=== PATIENT | female | born 1995 | race Two or more races ===

== ENCOUNTER → 2024-08-18 | Outpatient (CLI) | payer MEDICAID, SELFPAY ==
--- NOTE | 2024-08-18 16:55 | XR_ITS ---
Examination: Abdomen AP single view Technique: AP portable supine abdomen, single view Exam date and time: August 18, 2024 1741 hrs. Indications: Abdominal pain post abdominal surgery June 06, 2024. Findings: Moderate stool throughout the colon No obstruction Colonic sutures in the left abdomen No free air Impression: Moderate air and stool throughout the colon No obstruction
== END | disposition home or self-care (01) ==
PROVIDERS: PCP Registered Nurse Community Health; Referring Provider Registered Nurse Community Health; Visit Provider Registered Nurse Community Health
DX: K59.00 Constipation, unspecified (principal)
CPT/HCPCS: 74018